=== PATIENT | male | born 2000 | race Caucasian/White ===

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

== ENCOUNTER → 2019-06-29 | Emergency (ER) | payer OTHER ==
[~2019-06-29] VITALS: Ht 180.3 cm; Wt 119.1 kg
[~2019-06-29] MED LIST: IBUP-1542 PO; IBUP-1561 PO; LEVO500T48 PO
[2019-06-29 17:01] VITALS: BP 145/71; PULSE 73; RESP 18; Ht 180.3 cm; Wt 119.1 kg
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
== END | disposition home or self-care (01) ==
LOC: FTE 16:50
DX: N45.1 Epididymitis (principal)
CPT/HCPCS: 76870; 81001; 87086; Z7502